=== PATIENT | male | born 1970 | race American Indian/Alaskan Native ===

== ENCOUNTER 2019-08-29 09:01 | Emergency (ER) | payer OTHER ==
[2019-08-29 09:07] VITALS: BP 158/121; PULSE 71; RESP 18; TEMP 97.7
--- NOTE | 2019-08-29 10:56 | ED ---
Wound/Laceration HPI - General Chief Complaint: Wound/Laceration Stated Complaint: RT WRIST LACERATION Time Seen by Provider: 08/29/19 09:13 Source: patient, RN notes reviewed, old records reviewed Mode of arrival: ambulatory Limitations: no limitations - History of Present Illness Initial Comments: Patient's 49-year-old male presents pressure was able to play right wrist laceration. Patient reports that he was trying to get his dog come back and after escaping from the fence. Patient reports that when he caused a laceration and has had a blood vessel is he's had continued leaking. Patient reports that he has had no blood thinner use. He denies the pain with range of motion of his hand. Patient reports he decided his hand and wrist with a shirt. - Related Data Home Medications Medication Instructions Recorded Confirmed No Known Home Medications 08/29/19 08/29/19 Allergies Allergy/AdvReac Type Severity Reaction Status Date / Time No Known Allergies Allergy Verified 08/29/19 09:57 Review of Systems ROS Statement: Those systems with pertinent positive or pertinent negative responses have been documented in the HPI. ROS Other: All systems not noted in ROS Statement are negative. Past Medical History Additional Past Medical History / Comment(s): back pain d/t fall of 40ft History of Any Multi-Drug Resistant Organisms: None Reported Past Surgical History: No Surgical Hx Reported Past Psychological History: No Psychological Hx Reported Smoking Status: Current every day smoker Past Alcohol Use History: Daily, Heavy Past Drug Use History: None Reported General Exam - General Exam Comments Initial Comments: This is an alert and oriented 49-year-old male. No distress. Limitations: no limitations General appearance: alert, in no apparent distress Head exam: Present: atraumatic, normocephalic, normal inspection Eye exam: Present: normal appearance, PERRL, EOMI. Absent: scleral icterus, conjunctival injection, periorbital swelling ENT exam: Present: normal exam, mucous membranes moist Neck exam: Present: normal inspection. Absent: tenderness, meningismus, lymphadenopathy Respiratory exam: Present: normal lung sounds bilaterally. Absent: respiratory distress, wheezes, rales, rhonchi, stridor Cardiovascular Exam: Present: regular rate, normal rhythm, normal heart sounds. Absent: systolic murmur, diastolic murmur, rubs, gallop, clicks GI/Abdominal exam: Present: soft, normal bowel sounds. Absent: distended, tenderness, guarding, rebound, rigid Extremities exam: Present: normal inspection, full ROM, normal capillary refill, other (Patient has a 2 cm laceration over the anterior aspect of the right wrist, with evidence of venous bleed. Swell stopped with pressure.). Absent: tenderness, pedal edema, joint swelling, calf tenderness Back exam: Present: normal inspection, full ROM Neurological exam: Present: alert, oriented X3, CN II-XII intact Psychiatric exam: Present: normal affect, normal mood Skin exam: Present: warm, dry, intact, normal color. Absent: rash Course Vital Signs 08/29/19 09:04 Temperature 97.7 F Pulse Rate 71 Respiratory 18 Rate Blood Pressure 158/121 O2 Sat by Pulse 95 Oximetry Procedures - Laceration Laceration #1 Site: other (wrist) Size (cm): 2 Description: linear Depth: simple, single layer Anesthetic Used: lidocaine 1% Anesthesia Technique: local infiltration Amount (mls): 2 Pre-repair: wound explored, irrigated extensively Type of Sutures: nylon Size of Sutures: 5-0, 6-0 Number of Sutures: 5 Patient Tolerated Procedure: well, no complications Additional Comments: 2 figure 8 sutures to ligate bleeding vessel, 3 simple interuptted sutures. Medical Decision Making - Medical Decision Making Patient's 49-year-old male presents for his from today with a right wrist laceration. Patient cut it on the edge of a fence, he states that his tetanus is up-to-date. Patient did hit in the small vein with the anterior wrist. Hemostasis controlled after to figure 8 sutures were placed and the wound was closed after thorough irrigation with 3 simple are up-to-date sutures. I discussed the Patient needs to keep the area clean and dry. Discussed keeping the dressing on for 2 days. Discussed return parameters. All questions were answered. Disposition Clinical Impression: Wrist laceration Disposition: HOME SELF-CARE Condition: Good Instructions (If sedation given, give patient instructions): Care For Your Stitches (ED) Additional Instructions: Please return to the emergency room in 8-10 days to have sutures removed. Please leave wound covered for the first 24-48 hours and then leave open to air after that time. Please use clean soap and water to clean the suture area to prevent scabbing over the top of your sutures. Please watch for any signs of infection which may include but not limited to increased pain, swelling, redness, fever or chills. Please return to the emergency room if any signs of infection do occur. Please return to the emergency room for any other concerns or complications. Is patient prescribed a controlled substance at d/c from ED?: No Referrals: Jerod Montelongo MD [Primary Care Provider] - 1-2 days Time of Disposition: 10:56
== END 2019-08-29 11:05 | disposition home or self-care (01) ==
LOC: EC 09:01
DX: S61.511A Laceration without foreign body of right wrist, initial encounter (principal); F17.200 Nicotine dependence, unspecified, uncomplicated; W26.8XXA Contact with other sharp object(s), not elsewhere classified, initial encounter; Y93.89 Activity, other specified; Y92.009 Unspecified place in unspecified non-institutional (private) residence as the place of occurrence of the external cause
CPT/HCPCS: 12001; 99283